=== PATIENT | female | born 1995 | race Caucasian/White ===

== ENCOUNTER 2024-02-05 21:32 | Emergency (ER) | payer OTHER ==
[2024-02-05 21:45] VITALS: BP 111/66; PULSE 70; RESP 16; TEMP 98.2; BMI 33.6
[2024-02-05 23:44] LABS: HEMOGLOBIN 10.8 G/dL (10.7-15.3); MCH 27.5 pg (25.7-33.7); MCHC 32.6 g/dl (32.0-36.0); MEAN CELL VOLUME 84.4 fl (80-96); PLATELET COUNT 228.2 10^3/uL (134-434); RBC 3.91 10^6/uL (3.60-5.2); RDW 15.6 % (11.6-15.6); WHITE BLOOD COUNT 6.7 10^3/uL (4.0-10.8)
[2024-02-05 23:46] LABS: PLATELET ESTIMATE ADEQUATE
[2024-02-06 00:04] LABS: ALBUMIN 3.9 g/dl (3.4-5.0); ALK PHOS 69 U/L (45-117); ANION GAP 6 mmol/L (4-13); BILIRUBIN,TOTAL 0.3 mg/dl (0.2-1); CALCIUM 9.1 mg/dl (8.5-10.1); CHLORIDE 105 mmol/L (98-107); CO2 22 mmol/L (21-32); CREATININE 0.5 mg/dl (0.6-1.3); GLUCOSE,RANDOM 93 mg/dl (74-106); SGOT/AST 24 U/L (15-37); SGPT/ALT 23 U/L (7-52); SODIUM 133 mmol/L (136-145); TOT PROT 6.6 g/dl (6.4-8.2)
[2024-02-06 00:08] LABS: POTASSIUM 4.7 mmol/L (3.5-5.1)
== END 2024-02-06 02:32 | disposition home or self-care (01) ==
LOC: FER 21:32
DX: R42 Dizziness and giddiness (principal); H53.2 Diplopia; I10 Essential (primary) hypertension; Z71.3 Dietary counseling and surveillance
CPT/HCPCS: 36415; 80053; 85025; 93005; 93010; 99284-25